=== PATIENT | female | born 1970 | race Caucasian/White ===

== ENCOUNTER → 2024-12-19 | Outpatient (REF) | payer OTHER ==
[2024-12-19 17:43] LABS: BASO # 0.1 10^3/uL (0.0-0.2); BASO % 0.6 % (0.0-1.0); EOS # 0.1 10^3/uL (0.0-0.5); EOS % 0.9 % (0.0-3.0); LYMPH # 3.7 10^3/uL (1.5-5.0); LYMPH % 33.6 % (24.0-44.0); MONO # 0.7 10^3/uL (0.0-0.8); MONO % 6.2 % (2.0-8.0); NEUTROPHILS # 6.4 10^3/uL (1.5-8.5); NEUTROPHILS % 57.8 % (36.0-66.0); PLATELET COUNT, AUTOMATED 311 10^3/uL (150-450)
[2024-12-19 17:49] LABS: IRON (FE) 61 UG/DL (50-170); PERCENT SATURATION 16.1 % (13.2-45.0)
[2024-12-19 17:50] LABS: ALT/SGPT 17 U/L (7.0-40); AST/SGOT 16 U/L (<34); CALCIUM LEVEL 10.0 MG/DL (8.5-10.1); CARBON DIOXIDE LEVEL 26 MMOL/L (20-31); CHLORIDE LEVEL 103 MMOL/L (98-107); CHOLESTEROL LEVEL 203 MG/DL (<200); CHOLESTEROL RISK RATIO 4.06 (<5); CREATININE FOR GFR 0.77 MG/DL (0.55-1.30); GLOMERULAR FILTRATION RATE > 90.0 (>51); LDL CHOLESTEROL 100.9 MG/DL (<100); NON-HDL-C 153.1 MG/DL; POTASSIUM SERUM 4.1 MMOL/L (3.5-5.1); SODIUM LEVEL 142 MMOL/L (136-145); TRIGLYCERIDES LEVEL 261 MG/DL (<150)
[2024-12-19 17:51] LABS: MALB URINE SIEMENS 66.0 MG/L
[2024-12-19 18:02] LABS: CREATININE, URINE 264.7 MG/DL; MAU/CREAT RATIO 24.9 MCG/MG (0.0-30.0)
[2024-12-19 18:28] LABS: ESTIMATED AVERAGE GLUCOSE 126.0 MG/DL (60-110)
== END ==
LOC: M SFHCLERA 14:44
PROVIDERS: ATTEND Internal Medicine
DX: E11.65 Type 2 diabetes mellitus with hyperglycemia (principal); K51.80 Other ulcerative colitis without complications

== ENCOUNTER → 2025-03-11 | Outpatient (REF) | payer OTHER ==
[2025-03-11 18:36] LABS: ALT/SGPT 19 U/L (7.0-40); AST/SGOT 15 U/L (<34); BASO # 0.1 10^3/uL (0.0-0.2); BASO % 0.9 % (0.0-1.0); C REACTIVE PROTEIN QUANTITATIV < 0.50 MG/DL (<1.0); CALCIUM LEVEL 9.1 MG/DL (8.5-10.1); CARBON DIOXIDE LEVEL 29 MMOL/L (20-31); CHLORIDE LEVEL 107 MMOL/L (98-107); CREATININE FOR GFR 1.06 MG/DL (0.55-1.30); EOS # 0.1 10^3/uL (0.0-0.5); EOS % 1.5 % (0.0-3.0); GLOMERULAR FILTRATION RATE 62.0 (>51); LYMPH # 2.9 10^3/uL (1.5-5.0); LYMPH % 38.4 % (24.0-44.0); MONO # 0.4 10^3/uL (0.0-0.8); MONO % 4.9 % (2.0-8.0); NEUTROPHILS # 4.0 10^3/uL (1.5-8.5); NEUTROPHILS % 53.1 % (36.0-66.0); PLATELET COUNT, AUTOMATED 236 10^3/uL (150-450); POTASSIUM SERUM 4.4 MMOL/L (3.5-5.1); SODIUM LEVEL 145 MMOL/L (136-145)
[2025-03-11 18:51] LABS: ERYTHROCYTE SEDIMENTATION RATE 15 mm/hr (0-30)
[2025-03-11 18:54] LABS: ESTIMATED AVERAGE GLUCOSE 134.0 MG/DL (60-110)
== END ==
LOC: M SFHCLERA 12:42
PROVIDERS: ATTEND Internal Medicine
DX: R10.84 Generalized abdominal pain (principal); E11.65 Type 2 diabetes mellitus with hyperglycemia

== ENCOUNTER 2025-03-19 12:49 | Observation (INO) | payer OTHER ==
[~2025-03-19] VITALS: Ht 157.5 cm; Wt 79.2 kg
[2025-03-19] MEDS ORDERED: ISOVUE-370 76% 100 ML VIAL As Ordered ONE (13:07)
[2025-03-19] MEDS ORDERED: DULO1CAP6 PO (13:15)
[2025-03-19] MEDS ORDERED: BUPR150T12 PO (13:15)
[2025-03-19] MEDS ORDERED: PANT40TA29 PO (13:15)
[2025-03-19] MEDS ORDERED: LIDO1ADH93 TOP (13:16)
[2025-03-19] MEDS ORDERED: TOPI1CAP2 PO (13:16)
[2025-03-19] MEDS ORDERED: ATOR1TAB21 PO (13:16)
[2025-03-19] MEDS ORDERED: GABA-1172 PO (13:17)
[2025-03-19] MEDS ORDERED: TRAZ-257 PO (13:18)
[2025-03-19] MEDS ORDERED: TIRZ5PEN SQ (13:18)
[2025-03-19 13:23] LABS: BASO # 0.1 10^3/uL (0.0-0.2); BASO % 0.9 % (0.0-1.0); EOS # 0.1 10^3/uL (0.0-0.5); EOS % 1.5 % (0.0-3.0); LYMPH # 2.9 10^3/uL (1.5-5.0); LYMPH % 35.2 % (24.0-44.0); MONO # 0.4 10^3/uL (0.0-0.8); MONO % 4.9 % (2.0-8.0); NEUTROPHILS # 4.6 10^3/uL (1.5-8.5); NEUTROPHILS % 56.1 % (36.0-66.0); PLATELET COUNT, AUTOMATED 230 10^3/uL (150-450)
[2025-03-19 13:36] LABS: INR 0.89
[2025-03-19] MEDS ORDERED: TOPI25CA PO (17:06)
[2025-03-19] MEDS ORDERED: HOME MED LIST COMPLETE! XX SCH (17:10)
[2025-03-19] MEDS ORDERED: ACETAMINOPHEN 500 MG TAB PO PRN (18:05)
[2025-03-19 20:34] VITALS: BP 129/74; TEMP 97.6; O2SAT 98
[2025-03-19] MEDS: ASPIRIN 81 MG CHEWABLE TABLET PO SCH (21:14)
[2025-03-19] MEDS: traZODone 100 MG TAB PO SCH (21:15)
[2025-03-19] MEDS: GABAPENTIN 100 MG CAP PO SCH (21:15)
[2025-03-19 22:20] VITALS: BP_SYST 116; BP_SYST 121; BP_SYST 122; BP_DIAS 68; BP_DIAS 70
[2025-03-20 05:02] VITALS: BP 123/77; TEMP 97.4; O2SAT 98
[2025-03-20 07:53] LABS: PLATELET COUNT, AUTOMATED 215 10^3/uL (150-450)
[2025-03-20 08:00] VITALS: BP_SYST 104; BP_SYST 114; BP_SYST 123; BP_DIAS 60; BP_DIAS 61; BP_DIAS 76
[2025-03-20 08:25] LABS: ALT/SGPT 16.0 U/L (7.0-40); AST/SGOT 13.0 U/L (<34); CALCIUM LEVEL 8.9 MG/DL (8.5-10.1); CARBON DIOXIDE LEVEL 26.0 MMOL/L (20-31); CHLORIDE LEVEL 106.0 MMOL/L (98-107); CREATININE FOR GFR 0.99 MG/DL (0.55-1.30); GLOMERULAR FILTRATION RATE 67.3 (>51); POTASSIUM SERUM 4.2 MMOL/L (3.5-5.1); SODIUM LEVEL 144.0 MMOL/L (136-145)
[2025-03-20] MEDS: PANTOPRAZOLE 40MG TAB PO SCH (08:41)
[2025-03-20] MEDS: buPROPion **XL** 150 MG TABLET PO SCH (08:41)
[2025-03-20] MEDS: ATORVASTATIN 20 MG TAB PO SCH (08:41)
[2025-03-20] MEDS ORDERED: GABA-1172 PO (11:19)
[2025-03-20] MEDS ORDERED: TRAZ-257 PO (11:19)
[2025-03-20 11:48] VITALS: BP 157/72; TEMP 97.7; O2SAT 100
== END 2025-03-20 13:00 | disposition home or self-care (01) ==
LOC: EDBD 12:49 → M ED 12:49 → M ED INP 16:52 → M MS4PR 20:29
PROVIDERS: ADMIT Internal Medicine Nephrology; ATTEND Internal Medicine Nephrology
DX: R41.0 Disorientation, unspecified (principal); R26.89 Other abnormalities of gait and mobility; R29.6 Repeated falls; T50.995A Adverse effect of other drugs, medicaments and biological substances, initial encounter; G31.1 Senile degeneration of brain, not elsewhere classified; E78.5 Hyperlipidemia, unspecified; K21.9 Gastro-esophageal reflux disease without esophagitis; E11.9 Type 2 diabetes mellitus without complications; K58.9 Irritable bowel syndrome, unspecified; F32.A Depression, unspecified; G43.909 Migraine, unspecified, not intractable, without status migrainosus; G47.00 Insomnia, unspecified; M48.061 Spinal stenosis, lumbar region without neurogenic claudication; Z87.442 Personal history of urinary calculi; Z90.49 Acquired absence of other specified parts of digestive tract; Z90.79 Acquired absence of other genital organ(s); Z90.722 Acquired absence of ovaries, bilateral; Z98.1 Arthrodesis status; Z80.49 Family history of malignant neoplasm of other genital organs; Z84.19 Family history of other disorders of kidney and ureter; Z87.891 Personal history of nicotine dependence; Z88.8 Allergy status to other drugs, medicaments and biological substances; Z79.899 Other long term (current) drug therapy
CPT/HCPCS: 36415; 70450; 70496; 70498; 70551; 71045; 80047; 80053; 85025; 85027; 85610; 85730; 86850; 86900; 86901; 93005; 93041; 93306; 94760; 97161; 97530; 99285; Q9967

== ENCOUNTER → 2025-05-14 | Outpatient (REF) | payer OTHER ==
[~2025-05-14] MED LIST: ATOR1TAB21 PO; BUPR150T12 PO; DULO1CAP6 PO; GABA-1172 PO; LIDO1ADH93 TOP; PANT40TA29 PO; TIRZ5PEN SQ; TOPI1CAP2 PO; TOPI25CA PO; TRAZ-257 PO
[2025-05-16 13:56] LABS: HPV APTIMA Not Detected (Not Detected)
== END ==
LOC: M SFHCLERA 17:25
PROVIDERS: ATTEND Student in an Organized Health Care Education/Training Program
DX: Z12.4 Encounter for screening for malignant neoplasm of cervix (principal); R87.611 Atypical squamous cells cannot exclude high grade squamous intraepithelial lesion on cytologic smear of cervix (ASC-H)
CPT/HCPCS: 87624; G0123